=== PATIENT | female | born 1985 | race Caucasian/White ===

== ENCOUNTER 2017-07-28 07:09 | Emergency (ER) | payer OTHER ==
[2017-07-28 08:08] VITALS: BP 145/89
--- NOTE | 2017-07-28 08:41 | UC ---
Complaint Female HPI - HPI Summary HPI Summary: Pt c/o sudden onset of urinary frequency and urgency X 3 days. - History Of Current Complaint Chief Complaint: UCGU Stated Complaint: URINARY COMPLAINT Time Seen by Provider: 07/28/17 08:03 Hx Obtained From: Patient Hx Last Menstrual Period: 04/13/16, PCOS ?: No Onset/Duration: Sudden Onset, Lasting Days, Still Present Timing: Constant Severity Initially: Mild Severity Currently: Mild Pain Intensity: 0 Character: Dull Aggravating Factor(s): Urination Associated Signs And Symptoms: Positive: Negative - Risk Factors Ectopic Risk Factor: Negative Ovarian Torsion Risk Factor: Negative - Allergies/Home Medications Allergies/Adverse Reactions: Allergies Allergy/AdvReac Type Severity Reaction Status Date / Time No Known Allergies Allergy Verified 07/28/17 08:05 PMH/Surg Hx/FS Hx/Imm Hx Previously Healthy: Yes - Surgical History Surgical History: Yes Surgery Procedure, Year, and Place: C SECTION 2009 - Family History Known Family History: Positive: Hypertension, Respiratory Disease - Social History Occupation: Employed Full-time Lives: With Family Alcohol Use: None Substance Use Type: None Smoking Status (MU): Never Smoked Tobacco Have You Smoked in the Last Year: No Review of Systems Constitutional: Negative Skin: Negative Eyes: Negative ENT: Negative Respiratory: Negative Cardiovascular: Negative Gastrointestinal: Negative Genitourinary: Dysuria, Frequency, Urgency Motor: Negative Neurovascular: Negative Musculoskeletal: Negative Neurological: Negative Psychological: Negative Is Patient Immunocompromised?: No All Other Systems Reviewed And Are Negative: Yes Physical Exam Triage Information Reviewed: Yes Appearance: Well-Appearing Vital Signs: Initial Vital Signs Temp 98.2 F 07/28/17 08:03 Pulse 79 07/28/17 08:03 Resp 16 07/28/17 08:03 BP 145/89 07/28/17 08:03 Pulse Ox 100 07/28/17 08:03 Vital Signs Reviewed: Yes Eye Exam: Normal ENT Exam: Normal Dental Exam: Normal Neck exam: Normal Respiratory Exam: Normal Cardiovascular Exam: Normal Abdomen Description: Positive: Other: - suprapubic discomfort Musculoskeletal Exam: Normal Neurological Exam: Normal Psychological Exam: Normal Skin Exam: Normal Complaint Female Dx - Differential Dx/Diagnosis Differential Diagnosis/HQI/PQRI: Urinary Tract Infection, Other Provider Diagnoses: urinary frequency. dysuria Discharge - Sign-Out/Discharge Documenting (check all that apply): Discharge - Discharge Plan Condition: Stable Disposition: HOME Prescriptions: DOXYcycline CAP(*) [DOXYcycline 100MG CAP(*)] 100 mg PO Q12H #10 cap Phenazopyridine TAB* [Pyridium 100 mg TAB*] 100 mg PO TID #3 tab Patient Education Materials: Dysuria (ED) Referrals: [facility] [place] [facility] [Outside] No Primary Care Phys,NOPCP [Primary Care Provider] - - Billing Disposition and Condition Condition: STABLE Disposition: HOME
== END 2017-07-28 08:44 | disposition home or self-care (01) ==
LOC: UCCORT 07:09
DX: R35.0 Frequency of micturition (principal); R30.0 Dysuria; Z32.02 Encounter for pregnancy test, result negative
CPT/HCPCS: 81003; 84702; 87798; 99212; G0463

== ENCOUNTER 2018-04-12 10:48 | Emergency (ER) | payer OTHER ==
[2018-04-12 11:58] VITALS: BP 133/94
--- NOTE | 2018-04-12 13:03 | UC ---
Throat Pain/Nasal Lee HPI - HPI Summary HPI Summary: Pt presents with c/o nasal congestion, sinus pressure/pain, bilateral ear pain and "muffled feeling". - History of Current Complaint Chief Complaint: UCRespiratory Stated Complaint: COUGH,CONGESTION Time Seen by Provider: 04/12/18 11:40 Hx Obtained From: Patient Hx Last Menstrual Period: irregular menses d/t PCOS ?: No Onset/Duration: Gradual Onset, Lasting Weeks, Still Present Severity: Moderate Pain Intensity: 6 Pain Scale Used: 0-10 Numeric Cough: None Associated Signs & Symptoms: Positive: Sinus Discomfort - Epiglottits Risk Factors Epiglottis Risk Factors: Negative - Allergies/Home Medications Allergies/Adverse Reactions: Allergies Allergy/AdvReac Type Severity Reaction Status Date / Time No Known Allergies Allergy Verified 04/12/18 11:54 PMH/Surg Hx/FS Hx/Imm Hx Previously Healthy: Yes - Surgical History Surgical History: Yes Surgery Procedure, Year, and Place: C SECTION 2009 - Family History Known Family History: Positive: Hypertension, Respiratory Disease - Social History Occupation: Employed Full-time Lives: With Family Alcohol Use: None Substance Use Type: None Smoking Status (MU): Never Smoked Tobacco Have You Smoked in the Last Year: No Review of Systems All Other Systems Reviewed And Are Negative: Yes Constitutional: Positive: Fatigue Skin: Positive: Negative Eyes: Positive: Negative ENT: Positive: Ear Ache, Sinus Congestion, Sinus Pain/Tenderness Respiratory: Positive: Cough Cardiovascular: Positive: Negative Gastrointestinal: Positive: Negative Genitourinary: Positive: Negative Motor: Positive: Negative Neurovascular: Positive: Negative Musculoskeletal: Positive: Negative Neurological: Positive: Negative Psychological: Positive: Negative Is Patient Immunocompromised?: No Physical Exam Triage Information Reviewed: Yes Appearance: Well-Appearing Vital Signs: Initial Vital Signs Temp 97 F 04/12/18 11:55 Pulse 81 04/12/18 11:55 Resp 16 04/12/18 11:55 BP 133/94 04/12/18 11:55 Pulse Ox 98 04/12/18 11:55 Vital Signs Reviewed: Yes Eye Exam: Normal ENT: Positive: Nasal congestion, TM bulging - right TM, bulging with johnson fluid along bottom between 4-8 o'clock positions, Sinus tenderness Dental Exam: Normal Neck exam: Normal Respiratory Exam: Normal Cardiovascular Exam: Normal Musculoskeletal Exam: Normal Neurological Exam: Normal Psychological Exam: Normal Skin Exam: Normal Throat Pain/Nasal Course/Dx - Differential Dx/Diagnosis Differential Diagnosis/HQI/PQRI: Otitis Media, Pharyngitis, Sinusitis, URI Provider Diagnosis: Sinusitis nasal, Acute serous otitis media of both ears Discharge - Sign-Out/Discharge Documenting (check all that apply): Patient Departure All imaging exams completed and their final reports reviewed: No Studies - Discharge Plan Condition: Stable Disposition: HOME Prescriptions: Albuterol HFA INHALER* [Ventolin HFA Inhaler*] 2 puff INH Q6HR PRN #1 mdi PRN Reason: Sob/Wheezing Amoxicillin PO (*) [Amoxicillin 875 MG (*)] 875 mg PO Q12H #20 tab Patient Education Materials: Sinusitis (ED), Ear Infection (ED) Referrals: Barbara Rodriguez PA [Primary Care Provider] - If Needed - Billing Disposition and Condition Condition: STABLE Disposition: Home
== END 2018-04-12 12:23 | disposition home or self-care (01) ==
LOC: UCCORT 10:48
DX: J32.9 Chronic sinusitis, unspecified (principal); H65.03 Acute serous otitis media, bilateral
CPT/HCPCS: 99212; G0463

== ENCOUNTER 2018-10-30 09:56 | Emergency (ER) | payer OTHER ==
[2018-10-30 11:16] VITALS: BP 152/93
--- NOTE | 2018-10-30 13:21 | UC ---
Eye Complaint HPI - HPI Summary HPI Summary: Pt presents with c/o left eye redness, "scratchy" feeling, and states her daughters were both diagnosed with conjunctivitis this morning at PCP office. - History of Current Complaint Chief Complaint: UCEye Stated Complaint: LEFT EYE COMPLAINT Time Seen by Provider: 10/30/18 11:20 Hx Obtained From: Patient Hx Last Menstrual Period: "Like, the end of August" normally irregular ?: No Onset/Duration: Sudden Onset, Still Present Timing: Constant Severity Initially: Mild Severity Currently: Mild Pain Intensity: 0 Pain Scale Used: 0-10 Numeric Aggravating Factor(s): Blinking Alleviating Factor(s): Nothing Associated Signs And Symptoms: Positive: Drainage (Clear) - Risk Factors Penetrating Injury Risk Factor: Negative Globe Rupture Risk Factors: Negative Acute Glaucoma Risk Factors: Negative Optic Artery Occlusion Risk Factors: Negative - Allergies/Home Medications Allergies/Adverse Reactions: Allergies Allergy/AdvReac Type Severity Reaction Status Date / Time No Known Allergies Allergy Verified 10/30/18 11:12 Home Medications: Home Medications L.acidoph,Paracasei, B.lactis [Probiotic] 1 each PO BEDTIME 10/30/18 [History Confirmed 10/30/18] PMH/Surg Hx/FS Hx/Imm Hx Previously Healthy: Yes - Surgical History Surgical History: Yes Surgery Procedure, Year, and Place: , 2009, [place] - Family History Known Family History: Positive: Hypertension, Respiratory Disease - Social History Occupation: Employed Full-time Lives: With Family Alcohol Use: None Substance Use Type: None Smoking Status (MU): Never Smoked Tobacco Have You Smoked in the Last Year: No - Immunization History Vaccination Up to Date: Yes Review of Systems All Other Systems Reviewed And Are Negative: Yes Constitutional: Positive: Negative Skin: Positive: Negative Eyes: Positive: Drainage - left, Eye Redness - left ENT: Positive: Negative Respiratory: Positive: Negative Cardiovascular: Positive: Negative Gastrointestinal: Positive: Negative Genitourinary: Positive: Negative Motor: Positive: Negative Neurovascular: Positive: Negative Musculoskeletal: Positive: Negative Neurological: Positive: Negative Psychological: Positive: Negative Is Patient Immunocompromised?: No Physical Exam Triage Information Reviewed: Yes Appearance: Well-Appearing Vital Signs: Initial Vital Signs Temp 98.4 F 10/30/18 11:10 Pulse 76 10/30/18 11:10 Resp 18 10/30/18 11:10 BP 152/93 10/30/18 11:10 Pulse Ox 100 10/30/18 11:10 Vital Signs Reviewed: Yes Eyes: Positive: Conjunctiva Inflamed - left, Discharge - clear and some white, thicker discharge ENT Exam: Normal Dental Exam: Normal Neck exam: Normal Respiratory: Positive: No respiratory distress Musculoskeletal Exam: Normal Neurological Exam: Normal Psychological Exam: Normal Skin Exam: Normal Eye Complaint Course/Dx - Differential Dx/Diagnosis Differential Diagnosis/HQI/PQRI: Conjunctivitis Provider Diagnosis: Conjunctivitis Discharge - Sign-Out/Discharge Documenting (check all that apply): Patient Departure All imaging exams completed and their final reports reviewed: No Studies - Discharge Plan Condition: Stable Disposition: HOME Prescriptions: Gentamicin 0.3% OPHTH.SOLN* 2 drop LEFT EYE Q6H 7 Days #1 btl Patient Education Materials: Conjunctivitis (ED) Referrals: [facility] [place] [facility] REFERR[facility] [Outside] - If Needed No Primary Care Phys,NOPCP [Primary Care Provider] - - Billing Disposition and Condition Condition: STABLE Disposition: Home
== END 2018-10-30 11:30 | disposition home or self-care (01) ==
LOC: UCCORT 09:56
DX: H10.9 Unspecified conjunctivitis (principal)
CPT/HCPCS: 99212; G0463

== ENCOUNTER 2023-10-16 06:02 | Observation (INO) ==
[2023-10-16] MEDS ORDERED: Lidocaine 2.5%/Prilocain 2.5% 5 GM TUBE ONE (06:56)
[2023-10-16] MEDS ORDERED: Buffered Lidocaine 1% SYRIN 1 ml ONE (06:56)
[2023-10-16] MEDS ORDERED: fentaNYL 100 mcg/2 ml 50 MCG/ML VIAL ONE (08:15)
[2023-10-16] MEDS ORDERED: Midazolam 2 mg/2 ml VIAL 1 mg/ml 2 ml VIAL (2 mg) ONE (08:15)
[2023-10-16] MEDS ORDERED: Rocuronium 50 mg VIAL 10 mg/ml 5 ml VIAL (50 mg) ONE ×2 (08:19→11:25)
[2023-10-16] MEDS ORDERED: Levalbuterol 0.63MG/3ML NEB UNIT OF USE INH PRN (08:30)
[2023-10-16] MEDS ORDERED: Naloxone 0.4 mg VIAL 0.4 mg/ml 1 ml VIAL IV PRN (08:30)
[2023-10-16] MEDS ORDERED: Lidocaine 2% PF 5 ML VIAL ONE (09:06)
[2023-10-16] MEDS ORDERED: Propofol 10 MG/ML 20 ML BTL ONE (09:06)
[2023-10-16] MEDS ORDERED: ceFAZolin 2 GM PREMIX 2 GM/50 ML BAG ONE (09:45)
[2023-10-16] MEDS ORDERED: Heparin 5000 UNITS/ML 1 mL VIAL ONE (09:45)
[2023-10-16] MEDS ORDERED: Bupivacaine 0.5% 50 ML MDV VIAL ONE (09:57)
[2023-10-16] MEDS ORDERED: ISOSULFAN BLUE 1% 5 ML VIAL 10 MG/ML SUBCUT ONE (09:57)
[2023-10-16 10:20] LABS: Rapid COVID-19 Molecular Undetected (Undetected)
[2023-10-16] MEDS ORDERED: HYDROmorphone 0.5 MG/0.5 ML SYRINGE ONE ×4 (10:59→15:45)
[2023-10-16] MEDS ORDERED: Dexamethasone IV 4 MG/ML VIAL 1 ml VIAL ONE (11:14)
[2023-10-16] MEDS ORDERED: Ondansetron 4 mg VIAL 2 MG/ML 2 ml VIAL ONE ×2 (11:14→18:00)
[2023-10-16] MEDS ORDERED: ceFAZolin 2 GM in NS PREMIX 2 GM/100 ML BAG IVPB ONE (14:33)
[2023-10-16] MEDS ORDERED: Benzocaine/Menthol LOZ PO PRN (15:46)
[2023-10-16] MEDS ORDERED: Morphine 2 MG/ML SYRINGE IV PRN (15:46)
[2023-10-16] MEDS ORDERED: HYDROcodone/ACETAMIN 5/325 mg TAB PO PRN (15:46)
[2023-10-16] MEDS ORDERED: Cyclobenzaprine 5 mg TAB (NF) PO PRN (15:46)
[2023-10-16] MEDS ORDERED: Albuterol HFA INHALER 8 gm MDI INH PRN (15:48)
[2023-10-16] MEDS ORDERED: HYDROmorphone 1 MG/1 ML SYRINGE ONE (16:56)
[2023-10-16] MEDS: HYDROmorphone 1 MG/1 ML SYRINGE IV PRN (16:58)
[2023-10-16] MEDS: Acetaminophen IV 1 GM/100ML 1,000 MG/100 ML BAG IV ONE (17:52)
[2023-10-16] MEDS: Ondansetron 4 mg VIAL 2 MG/ML 2 ml VIAL IV PRN (18:10)
[2023-10-16] MEDS ORDERED: Scopolamine 1 mg/72hr PATCH ONE (18:16)
[2023-10-16] MEDS: Scopolamine 1 mg/72hr PATCH TRANSDERM PRN (18:18)
[2023-10-16] MEDS: Lactated Ringers 1000 ml BAG 1,000 ML IV SCH (20:09)
[2023-10-16] MEDS: Prochlorperazine 5 mg/ml 2 ml VIAL (10 mg) IV PRN (21:33)
[2023-10-16] MEDS ORDERED: Heparin 5000 UNITS/ML 1 mL VIAL SUBCUT SCH (22:00)
[2023-10-16] MEDS: HYDROcodone/ACETAMIN 5/325 mg TAB PO PRN (22:29)
[2023-10-16] MEDS: ceFAZolin VIAL 2 GM in NS 0.9% 100 ml BAG 100 ML IVPB SCH (22:30)
[2023-10-17 14:18] VITALS: BP 131/66
== END 2023-10-17 16:15 | disposition home or self-care (01) ==
LOC: OR 06:02 → SSU 06:02
PROVIDERS: ADMIT Student in an Organized Health Care Education/Training Program; ATTEND Student in an Organized Health Care Education/Training Program